=== PATIENT | male | born 1960 | race African-American/Black ===

== ENCOUNTER 2017-04-13 20:41 | Emergency (ER) | payer OTHER ==
[~2017-04-13] VITALS: Ht 180.3 cm; Wt 103.4 kg
--- NOTE | 2017-04-13 22:45 | RAD ---
CT ORBITS WO CONTRAST dated 04/13/2017 9:41 PM Indication: Pain after injury. Hit in left eye. Comparison: No comparison is available. Technique: Contiguous axial imaging of the orbits performed with thin cut coronal and sagittal reconstructions. One or more of the following individualized dose reduction techniques were utilized for this examination: 1. Automated exposure control 2. Adjustment of the mA and/or kV according to patient size 3. Use of iterative reconstruction technique Findings: There is preseptal soft tissue swelling over the left orbit. No significant postseptal edema or soft tissue gas. Orbital viveros and maxillary viveros are intact. No displaced fracture. Zygomatic arches are intact. Nasal bones are intact. Paranasal sinuses are clear. No significant mucosal thickening or air-fluid level. Ostiomeatal units and infundibula are patent. No bony destructive process or periostitis. Mastoid air cells and middle ears are clear. Limited images of the brain parenchyma unremarkable. No additional soft tissue abnormality. IMPRESSION: 1. Preseptal soft tissue swelling over the left orbit with no evidence of underlying displaced fracture. 2. Paranasal sinuses are clear. Electronically signed by: Prieto Angeles MD (04/13/2017 10:42 PM)
--- NOTE | 2017-04-13 22:50 | PHYS DOC ---
Past Medical History Past Medical History: No Pertinent History Past Surgical History: Tonsillectomy Alcohol Use: None Drug Use: None Adult General Chief Complaint Chief Complaint: injury left eye HPI HPI Patient is a 56 year old male who was brought to the emergency department by Marquita, complaining of an injury to his left eye. This happened at about noon while the patient was at work. He was cranking a landing gear on a trailer when it spun back and struck him in the left eye. Patient states that his vision is a little bit blurry but he feels like he can see okay out of his left eye. His left eye does not hurt that much. He is concerned more about the swelling of his eyelid which has swelled shut. He denies other injury. He believes his last tetanus shot was about 4 years ago. Review of Systems Review of Systems Constitutional: Denies fever or chills [] Eyes: As in history of present illness Musculoskeletal: Denies injury elsewhere Neurologic: Denies headache Current Medications Current Medications Current Medications Medications (Trade) Dose Ordered Sig/Sara Start Time Stop Time Status Last Admin Dose Admin Acetaminophen/ Hydrocodone Bitart (Lortab 5/325) 1 tab 1X ONCE 04/13/17 23:30 04/13/17 23:31 DC 04/13/17 23:29 1 TAB Allergies Allergies Allergies Coded Allergies Type Severity Reaction Last Updated Verified No Known Drug Allergies 04/13/17 No Physical Exam Physical Exam Constitutional: Well developed, well nourished, no acute distress, non-toxic appearance. Alert, mentating normally. HENT: Left eyelid is swollen shut with erythema and contusion of both upper and lower eyelids. There is some abrasion to the eyebrow area. There is purulent discharge from the left eye, small amount. There is no other head or facial injury noted. Left EAC and TM normal. Eyes: Left eye exposed with difficulty due to swollen eyelid. There appears to be conjunctival injection. The cornea appears clear. Inspection of the left globe appears normal. Neck: Normal range of motion, no stridor. [] Skin: Warm, dry, no erythema, no rash. [] Extremities: No tenderness, no cyanosis, no clubbing, ROM intact, no edema. [] Neurologic: Alert and oriented X 3, normal motor function, normal sensory function, no focal deficits noted. [] Current Patient Data Vital Signs Vital Signs Date Time Temp Pulse Resp B/P (MAP) Pulse Ox O2 Delivery O2 Flow Rate FiO2 04/13/17 23:29 18 98 Room Air 04/13/17 21:22 98.6 92 98.6 EKG EKG [] Radiology/Procedures Radiology/Procedures CT scan of the orbits interpreted by the radiologist. No acute bony injury or other acute injury noted. [] Course & Med Decision Making Course & Med Decision Making Pertinent Labs and Imaging studies reviewed. (See chart for details) 56-year-old male who was struck in the left eye by a crank at work. His tetanus is up-to-date. CT scan does not show any orbit damage. His eye is not painful and appears to be normal on inspection. I would like him to be rechecked by the draw operator. I discussed this with the patient. I completed [employer] comp paperwork. He was given the phone number to the draw operator. See instructions for plan. [] Dragon Disclaimer Dragon Disclaimer This electronic medical record was generated, in whole or in part, using a voice recognition dictation system. Departure Departure Impression: Primary Impression: Contusion of left eyelid and periocular area, initial encounter Disposition: HOME, SELF-CARE Condition: STABLE Referrals: NO PCP (PCP) Bernardino ERNST MD Patient Instructions: Eye Injury-Brief Additional Instructions: Today, CT scan did not show any bones broken around your eye. Use ice for swelling and elevate tonight, sleep with your head elevated. I would like you to be seen tomorrow by an hazardous waste management specialist to check your eye. See name and phone number on referral. Call first thing in the morning, tell them you were in the emergency department and you need to be rechecked in the office of possible on Monday. No work until you are rechecked by the hazardous waste management specialist. Scripts Hydrocodone/Apap 5-325 (NORCO 5-325 TABLET) 1 Each Tablet 1-2 TAB PO Q4-6HRS for eye pain, #20 TAB Prov: MARLEN LINDA MD 04/13/17 MARLEN LINDA MD Apr 13, 2017 22:50
[2017-04-13] MEDS ORDERED: HYDR-971 PO (23:22)
[2017-04-13] MEDS ORDERED: HYDROcodone/APAP 5/325MG 1 TAB TABLET PO ONE (23:30)
[2017-04-13 23:35] VITALS: BP 134/88
== END 2017-04-13 23:35 | disposition home or self-care (01) ==
LOC: ER 20:41
DX: S00.12XA Contusion of left eyelid and periocular area, initial encounter (principal); W22.8XXA Striking against or struck by other objects, initial encounter; Y93.89 Activity, other specified; Y92.69 Other specified industrial and construction area as the place of occurrence of the external cause; Y99.8 Other external cause status
CPT/HCPCS: 70480; 99284-25